=== PATIENT | female | born 1945 | race Caucasian/White ===

== ENCOUNTER 2020-12-27 20:17 | Inpatient (IN) ==
[2020-12-27] MEDS ORDERED: Morphine Sulfate 2 MG/ML SYRINGE IVP STA (21:23)
[2020-12-27] MEDS ORDERED: Ketorolac 15 MG/ML VIAL IVP ONE (21:24)
[2020-12-27] MEDS ORDERED: Naloxone 0.4 MG/ML INJ IVP PRN (23:34)
[2020-12-27] MEDS ORDERED: Melatonin 3 MG TABLET PO PRN (23:34)
[2020-12-28] MEDS: carvediloL 25 MG TABLET PO SCH ×2 (01:02→09:29)
[2020-12-28 01:39] LABS: Basophils % 0.3 %; Eosinophils # 0.1 K/mcL (0.0-0.6); Eosinophils % 1.4 %; Hemoglobin 13.3 g/dL (11.5-15.4); Immature Granulocytes % 0.9 % (0-4); Lymphocytes # 0.8 K/mcL (0.6-4.6); Lymphocytes % 8.7 %; Mean Corpuscular HGB Conc 31.7 g/dL (31.6-35.5); Mean Corpuscular Hemoglobin 27.8 pg (28.0-33.3); Mean Corpuscular Volume 87.9 fL (83.0-100.0); Mean Platelet Volume 10.4 fL (9.4-12.4); Monocytes # 0.5 K/mcL (0.0-1.3); Monocytes % 5.4 %; Neutrophils # 7.4 K/mcL (1.6-8.9); Platelet Count 193 K/mcL (140-400); Red Blood Count 4.78 M/mcL (3.82-4.97); Red Cell Distribution Width 14.4 % (11.5-14.5); Segmented Neutrophils % 83.3 %; White Blood Count 8.9 K/mcL (4.3-11.1)
[2020-12-28] MEDS: Aspirin 81 MG TAB.CHEW PO SCH ×2 (01:52→15:03)
[2020-12-28 02:06] LABS: BUN/Creatinine Ratio 18 (6-26); Blood Urea Nitrogen 13 mg/dL (8-23); Calcium 8.5 mg/dL (8.6-10.3); Carbon Dioxide 22 mEq/L (23-29); Chloride 109 mEq/L (98-107); Glucose 145 mg/dL (70-105); Osmolality,Calculated 295 (280-300); Potassium 3.7 mEq/L (3.5-5.1); Sodium 141 mEq/L (136-145); eGFR For African Americans > 60 (> 60); eGFR For Non-African Americans > 60 (> 60)
[2020-12-28] MEDS ORDERED: Ketorolac 15 MG/ML VIAL IVP PRN (02:31)
[2020-12-28 03:59] VITALS: O2SAT 95
[2020-12-28] MEDS ORDERED: Aspirin 81 MG TAB.CHEW PO SCH (09:00)
[2020-12-28 11:10] VITALS: BP 150/66; PULSE 80; TEMP 99.5
[2020-12-28] MEDS ORDERED: FLU Vac QV 21-22 (6Month+)/PF 0.5 ML SYRINGE IM ONE (14:43)
== END 2020-12-28 16:22 | disposition home or self-care (01) | DRG 552 ==
LOC: EMEROOARM 20:17 → 4WAOSI 20:17 → SUATTDRO 12-28 00:53
PROVIDERS: ADMIT Internal Medicine; ATTEND Family Medicine